=== PATIENT | female | born 1965 | race Caucasian/White ===

== ENCOUNTER 2018-12-18 08:37 | Day surgery (SDC) | payer OTHER ==
[~2018-12-18] VITALS: Ht 165.1 cm; Wt 51.2 kg
[2018-12-18] MEDS ORDERED: OMEP20CA16 PO (09:22)
[2018-12-18] MEDS ORDERED: TRAMADOL (09:22)
[2018-12-18] MEDS ORDERED: IBUPROFEN PO (09:22)
[2018-12-18] MEDS ORDERED: BACLOFEN PO (09:22)
[2018-12-18] MEDS ORDERED: RANI150T35 PO (09:22)
[2018-12-18 09:23] VITALS: Ht 165.1 cm; Wt 51.2 kg
[2018-12-18 09:35] VITALS: BP 111/58; PULSE 74; RESP 24
[2018-12-18] MEDS ORDERED: FENTAnyl 50 MCG/ML VIAL ONE (10:10)
[2018-12-18] MEDS ORDERED: MIDAZOLAM 1 MG/ML 2 ML INJ ONE (10:11)
[2018-12-18 10:19] VITALS: BP 113/68; RESP 12
[2018-12-18 10:24] VITALS: BP 131/63; PULSE 65; RESP 22
--- NOTE | 2018-12-19 06:31 | CONS ---
DATE OF ADMISSION: 12/18/2018 DATE OF CONSULTATION: PATIENT NAME: IVONE HOOK TYPE OF CONSULTATION: Preoperative gastroenterology Dear Dr. Villaseñor: I thank you very much for this kind referral. HISTORY OF PRESENT ILLNESS: Ms. Ivone Hook is a 53-year-old female patient who has been ref erred to me for further evaluation of upper abdominal pain, not responding to therapy with omeprazole and Zantac. The patient has also been prescribed Carafate from the emergency room. She had abdomin al ultrasound done and it was normal. No past history of peptic ulcer disease. She is not taking an y nonsteroidal anti-inflammatory agents. Appetite has been poor and she has been losing weight. No history of gallstones or liver disease. She denies any change in the bowel habit or rectal bleeding. Not a hypertensive or diabetic. No heart disease, lung problem or kidney disease. The patient has cerebellar ataxia and spastic paraplegia. She is status post hysterectomy. SOCIAL HISTORY: Nonsmoker. No alcohol abuse. FAMILY HISTORY: No family history of gastrointestinal tract neoplasm. ALLERGIES: NO DRUG ALLERGIES, BUT THE PATIENT IS INTOLERANT TO FLAGYL. SHE STATES FLAGYL MADE HER S YMPTOMS WORSE. MEDICATIONS: 1. Omeprazole 20 mg p.o. b.i.d. 2. Zantac 150 mg p.o. b.i.d. 3. Tramadol. 4. Baclofen. PHYSICAL EXAMINATION: VITAL SIGNS: She is 5 feet 5 inches tall and weighs 114 pounds. HEART: Normal heart sounds. LUNGS: Clear. ABDOMEN: Soft, no masses. Normal bowel sounds. NEUROLOGIC: The patient has got paraplegia and she has got ataxia. IMPRESSION: 1. Upper abdominal pain, not responding to therapy with omeprazole and Zantac. 2. She says taking Flagyl made her symptoms worse. 3. The patient had abdominal ultrasound and it was normal. 4. Cerebellar ataxia and spastic paraplegia. 5. Status post hysterectomy. PLAN: Endoscopy for further evaluation. The procedure and possible complications are well explained to the patient. She understands and cons ents to the procedure. I thank you once again. With warmest personal regards, Dictated By: KRYSTYNA LANG/FATOUMATA Conf#: [id number] DID#: [id number]
== END 2018-12-18 12:48 | disposition home or self-care (01) ==
LOC: GIL 08:37
PROVIDERS: ATTEND Internal Medicine Gastroenterology
DX: K29.50 Unspecified chronic gastritis without bleeding (principal)
CPT/HCPCS: 43239; 88305; 88312; J2250; J3010